=== PATIENT | female | born 1990 | race Two or more races ===

== ENCOUNTER 2017-12-30 03:21 | Inpatient (IN) | payer OTHER ==
[~2017-12-30] VITALS: Ht 157.5 cm; Wt 69.9 kg
[2017-12-30] MEDS ORDERED: PRENATAL TABLE1 EACH PO (03:44)
[2017-12-30] MEDS ORDERED: PROGESTERO50 MG/1 ML IM (03:49)
[2017-12-30] MEDS ORDERED: INFED50 MG/ML IV (03:50)
== END 2018-01-01 12:44 | disposition home or self-care (01) | DRG 775 ==
LOC: LDR 03:21 → OB/GYN 03:21 → LDR 18:26 → OB/GYN 18:27
PROC: 0DQR0ZZ Repair Anal Sphincter, Open Approach (ICD-10-PCS; principal; 2017-12-30)
PROC: 10E0XZZ Delivery of Products of Conception, External Approach (ICD-10-PCS; 2017-12-30)
PROC: 4A1HXCZ Monitoring of Products of Conception, Cardiac Rate, External Approach (ICD-10-PCS; 2017-12-30)
PROC: 4A033R1 Measurement of Arterial Saturation, Peripheral, Percutaneous Approach (ICD-10-PCS; 2017-12-30)
DX: O70.21 Third degree perineal laceration during delivery, IIIa (principal); Z3A.40 40 weeks gestation of pregnancy; Z37.0 Single live birth